=== PATIENT | male | born 1960 | race Caucasian/White ===

== ENCOUNTER 2017-02-08 21:24 | Emergency (ER) | payer SELFPAY ==
[2017-02-08 21:37] VITALS: BP 144/87; BMI 19.1
--- NOTE | 2017-02-08 22:12 | DR.GENAD ---
HPI - PCP Primary Care Physician: EUFEMIA - Complaint/Symptoms Chief Complaint Doctors Comments: Patient is a regular customer for cerumen impaction. Chief Complaint:: LT EAR HURTS AND IS STOPPED UP - Source History Provided: Patient - Mode of Arrival Mode of Arrival: Ambulatory - Timing Onset of Chief Complaint: 02/08/17 PMH - PMH Past Medical History: Yes Past Medical History: Kidney Stones Past Surgical History: Yes Surgical History: Abdominal Surgery, Tonsillectomy, Lithotripsy - Family History History of Family Medical Conditions: Yes Family Medical History: Diabetes Mellitus - Social History Do you use any recreational Drugs:: No Lives With: Alone Lives Where: Home - infectious screening In the last 2 months have you had wt loss of >10#?: NO Have you had fever, night sweats or hemotysis?: No Have you traveled outside the country in the last 6 months?: No Isolation: Standard ROS - Review of Systems Constitutional: No Symptoms Reported Eyes: No Symptoms Reported ENTM: Ear Pain Respiratoy: No Symptoms Reported Cardiovascular: No Symptoms Reported Gastrointestinal/Abdominal: No Symptoms Reported Genitourinary: No Symptoms Reported Neurological: No Symptoms Reported Musculoskeletal: No Symptoms Reported Integumentary: No Symptoms Reported Hematologic/Lymphatic: No Symptoms Reported Endocrine: No Symptoms Reported Psychiatric: No Symptoms Reported All Other Systems: Reviewed and Negative PE - Vital Signs Vitals: Temperature 98.4 F Pulse Rate 73 Respiratory Rate 18 Blood Pressure [Left Arm] 126/67 Blood Pressure [Right Arm] 119/74 Blood Pressure 144/87 O2 Sat by Pulse Oximetry 100 - General Limitations: No Limitations General Appearance: Alert, In No Apparent Distress - Head Head Exam: Normal Inspection, Atraumatic - Eyes Eye exam: Normal Appearance, PERRL, EOMI - ENT ENT Exam: Normal Exam External Ear Exam: Normal External Inspection TM/Canal Exam: Bilateral Cerumen Impaction Nose Exam: Normal Nose Exam Mouth Exam: Normal Inspection Throat Exam: Normal Inspection - Neck Neck Exam: Normal Inspection - Chest Chest Inspection: Normal Inspection - Respiratory Respiratory Exam: Normal Lung Sounds Bilat Respiratory Exam: Bilateral Clear to Auscultation - Cardiovascular Cardiovascular Exam: Regular Rate, Normal Rhythm - Abdominal Exam Abdominal Exam: Normal Inspection Abdominal Tenderness: negative: RUQ, RLQ, LUQ, LLQ, Epigastrium, Suprapubic, Diffuse, Mild, Moderate, Severe, Other - Extremities Extremities Exam: Normal Inspection, Full ROM - Back Back Exam: Normal Inspection, Full ROM - Neurologic Neurological Exam: Alert, Oriented X3, CN II-XII Intact - Psychiatric Psychiatric Exam: Normal Affect, Normal Mood - Skin Skin Exam: Warm, Dry Course - Treatment Treatment: Irrigation - Reevaluation 1st: Improved - Diagnosis Discharge Problem: Cerumen impaction Qualifiers: Laterality: bilateral Qualified Code(s): H61.23 - Impacted cerumen, bilateral - Discharge Plan Condition: Stable - Follow ups/Referrals Follow ups/Referrals: NFD,None [Primary Care Provider] - 3 days - Instructions
== END 2017-02-08 22:16 | disposition home or self-care (01) ==
LOC: ER 21:48
PROC: F09Z3XZ Cerumen Management Treatment using Cerumen Management Equipment (ICD-10-PCS; principal; 2017-02-08)
DX: H61.23 Impacted cerumen, bilateral (principal)
CPT/HCPCS: 69210; 99281; 99282

== ENCOUNTER 2017-06-14 23:45 | Emergency (ER) | payer SELFPAY ==
[2017-06-14 23:53] VITALS: BP 160/90; BMI 19.1
[2017-06-15] MEDS ORDERED: NS 1000 ML 1,000 ML ONE (00:01)
[2017-06-15] MEDS ORDERED: TORADOL 30 MG VIAL ONE (00:01)
[2017-06-15] MEDS ORDERED: TORADOL 30 MG VIAL IVP ONE (00:07)
[2017-06-15] MEDS ORDERED: NS 1000 ML 1,000 ML IV ONE (00:07)
--- NOTE | 2017-06-15 01:06 | DR.MBACK ---
HPI - Time Seen Time seen: 01:00 - PCP Primary Care Physician: NFD - Complaint Chief Complaint Doctors Comments: Patient admits to prior kidney stones.He reports that he had left flank pain when leaving work tonight. The pain is similar to previous kidney stone. Chief Complaint:: LT FLANK PAIN AND PAIN WHEN URINATING - Source History Provided: Patient - Mode of Arrival Mode of Arrival: Ambulatory - Timing Onset of Chief Complaint: 06/14/17 PMH - PMH Past Medical History: Yes Past Medical History: Kidney Stones Past Surgical History: Yes Surgical History: Abdominal Surgery, Tonsillectomy, Lithotripsy - Family History History of Family Medical Conditions: Yes Family Medical History: Diabetes Mellitus - Social History Does any household member use tobacco: No Alcohol Use: None Do you use any recreational Drugs:: No Lives With: Alone Lives Where: Home - infectious screening In the last 2 months have you had wt loss of >10#?: NO Have you had fever, night sweats or hemotysis?: No Have you traveled outside the country in the last 6 months?: No Isolation: Standard ROS - Review of Systems Eyes: No Symptoms Reported ENTM: No Symptoms Reported Respiratoy: No Symptoms Reported Cardiovascular: No Symptoms Reported Gastrointestinal/Abdominal: No Symptoms Reported Genitourinary: No Symptoms Reported Neurological: No Symptoms Reported Musculoskeletal: Back Pain, Left Integumentary: No Symptoms Reported Hematologic/Lymphatic: No Symptoms Reported Endocrine: No Symptoms Reported, Excessive Sweating Psychiatric: No Symptoms Reported All Other Systems: Reviewed and Negative PE - Vital Signs Vitals: Temperature 98.6 F Pulse Rate 78 Respiratory Rate 18 Blood Pressure [Left Arm] 126/67 Blood Pressure [Right Arm] 119/74 Blood Pressure 160/90 O2 Sat by Pulse Oximetry 99 - General Limitations: No Limitations General Appearance: Alert, In No Apparent Distress - Head Head Exam: Normal Inspection, Atraumatic - Eyes Eye exam: Normal Appearance, PERRL, EOMI - ENT ENT Exam: Normal Exam - Chest Chest Inspection: Normal Inspection - Respiratory Respiratory Exam: Normal Lung Sounds Bilat Respiratory Exam: Bilateral Clear to Auscultation - Cardiovascular Cardiovascular Exam: Regular Rate, Normal Rhythm - Abdominal Exam Abdominal Exam: Normal Inspection Abdominal Tenderness: negative: RUQ, RLQ, LUQ, LLQ, Epigastrium, Suprapubic, Diffuse, Mild, Moderate, Severe, Other - Genitourinary Exam: Male: Deferred - Extremities Extremities Exam: Normal Inspection, Full ROM - Back Back Exam: Normal Inspection, (L) CVA Tenderness - Neurological Neurological Exam: Alert, Oriented X3, CN II-XII Intact - Psychiatric Psychiatric Exam: Normal Affect, Normal Mood - Skin Skin Exam: Warm, Dry, Intact Course - Reevaluation 1st: Improved ROR - Labs Reviewed Laboratory: Specimen Type Clean catch urine 06/15/17 01:23 Urine Color Yellow (YELLOW) 06/15/17 01:23 Urine Appearance Slightly hazy (CLEAR) 06/15/17 01:23 Urine pH 5.0 (5.0 - 8.0) 06/15/17 01:23 Ur Specific [place] 1.030 (1.000-1.030) 06/15/17 01:23 Urine Protein 2+ (NEGATIVE) 06/15/17 01:23 Urine Glucose (UA) Negative (NEGATIVE) 06/15/17 01:23 Urine Ketones Negative (NEGATIVE) 06/15/17 01:23 Urine Occult Blood 5+ (NEGATIVE) 06/15/17 01:23 Urine Nitrite Negative (NEGATIVE) 06/15/17 01:23 Urine Bilirubin Negative (NEGATIVE) 06/15/17 01:23 Urine Urobilinogen Normal (NORMAL) 06/15/17 01:23 Ur Leukocyte Esterase 1+ (NEGATIVE) 06/15/17 01:23 Urine RBC 20-25 /HPF (NEGATIVE) 06/15/17 01:23 Urine WBC 3-5 /HPF (NEGATIVE) 06/15/17 01:23 Ur Squamous Epith Cells Rare /HPF (NEGATIVE) 06/15/17 01:23 Amorphous Sediment 2+ /HPF (NEGATIVE) 06/15/17 01:23 Urine Bacteria 1+ /HPF (NEGATIVE) 06/15/17 01:23 Ur Culture Indicated? Yes/culture set up 06/15/17 01:23 - XRAY XRAY Interpreted by: Radiologist (Ct Abd/pelv: Focal areas of bronchiectasis are seen in the base the right middle lobe and left lower lobe. Surgical clips are seen in the right upper quadrant. The liver,spleen,pancreas,adrenal glands kidneys and gallbladder are normal. There is a 2mm stone in the mid to distal left ureter. No hydroureter. There is no evidence of biliary ductal dilatation. The aorta and inferior vena cava are normal in caliber. The bowel loops are nonobstructed. Impression: There is a left ureteral stone measuring 2mm. No left hydronephrosis or hydroureter.) - Diagnosis Discharge Problem: Left ureteral stone - Discharge Plan Condition: Stable - Follow ups/Referrals Follow ups/Referrals: NFD,None [Primary Care Provider] - 3 days - Instructions
[2017-06-15 01:32] LABS: BILIRUBIN,URINE NEGATIVE (NEGATIVE); BLOOD/HEMOGLOBIN,URINE 5+ (NEGATIVE); GLUCOSE, URINE NEGATIVE (NEGATIVE); KETONES,URINE NEGATIVE (NEGATIVE); LEUKOCYTE ESTERASE ,URINE 1+ (NEGATIVE); NITRITES,URINE NEGATIVE (NEGATIVE); PROTEIN,URINE 2+ (NEGATIVE); UROBILINOGEN,URINE NORMAL (NORMAL)
[2017-06-15 01:40] LABS: AMORPHOUS SEDIMENT,UR 2+ /HPF (NEGATIVE); APPEARANCE,URINE SLIGHTLY HAZY (CLEAR); BACTERIA,URINE 1+ /HPF (NEGATIVE); COLOR,URINE YELLOW (YELLOW); RBC,URINE 20-25 /HPF (NEGATIVE); SQUAMOUS EPITHELIAL CELL,UR RARE /HPF (NEGATIVE)
[2017-06-15] MEDS ORDERED: MORPHINE SULFATE INJ 4 MG IVP ONE (01:46)
[2017-06-15] MEDS ORDERED: ZOFRAN INJ 4 MG VIAL ONE (01:46)
[2017-06-15] MEDS ORDERED: MORPHINE SULFATE INJ 4 MG ONE (01:47)
[2017-06-15] MEDS ORDERED: ZOFRAN INJ 4 MG VIAL IVP ONE (01:49)
--- NOTE | 2017-06-15 02:19 | CT ---
EXAM: CT ABDOMEN AND PELVIS WITHOUT CONTRAST INDICATION: Left flank pain COMPARISION: No priors available for comparison TECHNIQUE: Axial CT examination of the abdomen and pelvis was performed without intravenous contrast. Coronal a nd sagittal reconstructions were created using the axial data. FINDINGS: Focal areas of bronchiectasis are seen in the base the right middle lobe and left lower lobe. Surgic al clips are seen in the right upper quadrant. The liver, spleen, pancreas, adrenal glands, kidneys, and gallbladder are normal. There is a 2 mm stone in the mid to distal left ureter . No hydroureter . There is no evidence of biliary ductal dilatation. The aorta and inferior vena cava are normal in caliber. The bowel loops are nonobstructed. No abnormal mass, lymphadenopathy, or fluid collection. Urinary bladder is normal. The regional skeleton is intact. IMPRESSION: There is a left ureteral stone measuring 2 mm. No left hydronephrosis or hydroureter. Reported By:
== END 2017-06-15 03:03 | disposition home or self-care (01) ==
LOC: ER 23:45
DX: N20.1 Calculus of ureter (principal); R10.84 Generalized abdominal pain
CPT/HCPCS: 74176; 81001; 87086; 96365; 96374; 96375; 99283; A4222; J1885; J2270; J2405

== ENCOUNTER → 2017-12-26 | Outpatient (CLI) | payer SELFPAY ==
[2017-12-26 12:18] LABS: BASOPHILS % (AUTO) 0.6 % (0.2-1.0); EOSINOPHILS # (AUTO) 0.2 x10^3/uL (0.0-0.2); EOSINOPHILS % (AUTO) 3.4 % (0.9-2.9); HEMATOCRIT 38.3 % (42.0-54.0); HEMOGLOBIN 13.1 g/dL (13.5-18.0); LYMPHOCYTES # (AUTO) 1.1 X10^3/uL (1.3-2.9); LYMPHOCYTES % (AUTO) 18.1 % (21.0-51.0); MEAN CORPUSCULAR HGB CONC 34.2 g/dL (33.0-35.0); MEAN CORPUSCULAR VOLUME 90.8 fL (80.0-100.0); MEAN PLATELET VOLUME 8.2 fL (7.4-11.0); MONOCYTES # (AUTO) 0.5 x10^3/uL (0.3-0.8); MONOCYTES % (AUTO) 7.7 % (0.0-13.0); NEUTROPHILS # (AUTO) 4.3 x10^3/uL (2.2-4.8); NEUTROPHILS % (AUTO) 70.2 % (42.0-75.0); PLATELET COUNT 205 X10^3/uL (150.0-450.0); RED BLOOD COUNT 4.22 X10^6/uL (4.7-6.0); RED CELL DISTRIBUTION WIDTH 12.8 % (11.6-16.5); WHITE BLOOD COUNT 6.1 X10^3/uL (3.6-10.0)
--- NOTE | 2017-12-26 12:23 | RAD ---
HISTORY: Bronchitis Study: Two views the chest Comparison: November 06, 2016 Findings: The patient is slightly rotated. The cardiac silhouette is unremarkable. Interstitial changes are aga in seen within both lungs. No evidence of focal consolidation is identified. IMPRESSION: No evidence of acute cardiopulmonary disease is appreciated. Reported By:
== END ==
LOC: LAB 12:01
PROVIDERS: ATTEND Nurse Practitioner Family
DX: J20.9 Acute bronchitis, unspecified (principal)
CPT/HCPCS: 36415; 71046; 85025

== ENCOUNTER 2018-10-10 11:39 | Inpatient (IN) ==
[2018-10-10] MEDS: DUONEB 0.5 MG/3 MG NEB SCH ×3 (12:15→20:18)
[2018-10-10] MEDS ORDERED: SALINE 3% 15 ML NEB TX NEB ONE (12:15)
[2018-10-10] MEDS ORDERED: TUSSIONEX PENNKINETIC SUSP PO PRN (12:53)
--- NOTE | 2018-10-10 13:15 | DR.H&P ---
H&P - History & Physical for Day of: H&P Date: 10/10/18 - Chief Complaint Chief Complaint: fever, ccc, wheezing - History of Present Illness History of Present Illness: 58 WM DIRECT ADMIT FROM DR VAZQUEZ OFFICE WITH CO FEVER, SOB, CCC, SORE THROAT AND WHEEZING. PT WAS SEEN IN OFFICE WITH ROCEPHIN 1GM, DECADRON 10MG IM, PO LEVAQUIN. PT HAD FLU AND STREP SCREEN NEGATIVE IN THE OFFICE. PT CONTINUED WITH CO WHEEZING, FEELS WEAK, CONTINUED WITH FEVER DURING THE NIGHT. PT HAS PMH OF PUD, GERD, HYPOTHYROIDISM. PT ADMITTED FOR PNEUMONIA PROTCOL. - Past Medical History Past Medical History: Hypothyroidism, Kidney Stones Additional Medical History: Hx GI Ulcer - Past Surgical History Surgical History: Abdominal Surgery, Tonsillectomy, Lithotripsy - Family History Family Medical History: Diabetes Mellitus - Social History Does patient currently use any type of tobacco product: No Have you used tobacco products in the last 12 months: No Type of Tobacco Use: None Does any household member use tobacco: No Alcohol Use: None Drug Use: None - Medications Home Medications: No Known Drug Allergies Allergy (Verified 06/14/17 23:46) - Review of Systems Constitutional: Fever, Chills, Weakness Eyes: No Symptoms Reported ENT: No Symptoms Reported Respiratory: Cough, Shortness of Breath, SOB with Excertion, Wheezing Cardiovascular: No Symptoms Reported Gastrointestinal: Nausea Genitourinary: No Symptoms Reported Musculoskeletal: No Symptoms Reported Skin: No Symptoms Reported Neurological: Weakness - Physical Exam Vital Signs: Temperature 97.8 F Pulse Rate [Left Brachial] 86 Respiratory Rate 20 Blood Pressure [Left Arm] 132/81 Blood Pressure [Right Arm] 119/74 Blood Pressure 160/88 O2 Sat by Pulse Oximetry 98 Oriented: Normal Eyes: Normal Ear: Normal Nose: Injected Throat: Exudate Respiratory: Wheezes Throughout, RLL Diminished, LLL Diminished Cardiovascular: Normal : Normal Auscultation: Bowel Sounds: Normal Palpation: Normal Tenderness: Normal Skin: Decreased Turgur Musculoskeletal: Normal Psychiatric: Normal Mood Description: Calm Speech Pattern: Clear, Appropriate - Assessment/Plan (1) Bronchopneumonia Status: Acute Plan: ADMIT, PNEUMONIA PROTOCOL. IV ATBX, LEVAQUIN AND ZOSYN. JET NEBS, SUPPLEMENTAL O2. PPI THERAPY, BLOOD AND SPUTUM CULTURED COLLECTED ON ADMISSION. ADMISSION CXR (2) Fever Status: Acute (3) Hypothyroidism Status: Chronic - Allergies Allergies/Adverse Reactions: Allergies Allergy/AdvReac Type Severity Reaction Status Date / Time No Known Drug Allergies Allergy Verified 06/14/17 23:46
[2018-10-10] MEDS ORDERED: NS 1/2 1000 ML IV 1,000 ML IV ONE (13:20)
[2018-10-10 13:29] VITALS: BMI 19.1
[2018-10-10] MEDS: NS 1/2 1000 ML IV 1,000 ML IV SCH (13:33)
[2018-10-10 13:34] LABS: BASOPHILS # (AUTO) 0.1 X10^3/uL (0.0-0.1); BASOPHILS % (AUTO) 0.4 % (0.2-1.0); EOSINOPHILS % (AUTO) 0.1 % (0.9-2.9); HEMATOCRIT 42.2 % (42.0-54.0); HEMOGLOBIN 14.2 g/dL (13.5-18.0); LYMPHOCYTES # (AUTO) 0.8 X10^3/uL (1.3-2.9); MEAN CORPUSCULAR HEMOGLOBIN 30.7 pg (27.0-34.0); MEAN CORPUSCULAR HGB CONC 33.5 g/dL (33.0-35.0); MEAN CORPUSCULAR VOLUME 91.5 fL (80.0-100.0); MEAN PLATELET VOLUME 9.6 fL (7.4-11.0); MONOCYTES # (AUTO) 1.1 x10^3/uL (0.3-0.8); MONOCYTES % (AUTO) 7.1 % (0.0-13.0); NEUTROPHILS # (AUTO) 13.6 x10^3/uL (2.2-4.8); NEUTROPHILS % (AUTO) 87.4 % (42.0-75.0); PLATELET COUNT 229 X10^3/uL (150.0-450.0); RED BLOOD COUNT 4.62 X10^6/uL (4.7-6.0); RED CELL DISTRIBUTION WIDTH 13.5 % (11.6-16.5); WHITE BLOOD COUNT 15.6 X10^3/uL (3.6-10.0)
[2018-10-10] MEDS: ROBITUSSIN DM PO SCH ×3 (13:34→21:00)
[2018-10-10] MEDS: LEVAQUIN PREMIX IV 750 MG 750 MG/150 ML BAG IV SCH (13:34)
[2018-10-10] MEDS: PROTONIX INJ 40 MG VIAL IVP SCH (13:35)
[2018-10-10 13:51] LABS: ALANINE AMINOTRANSFERASE 23 Units/L (12-78); ALBUMIN 3.9 g/dL (3.4-5.0); ALKALINE PHOSPHATASE 68 Units/L (46-116); ASPARTATE AMINO TRANSFERASE 23 Units/L (15-37); BLOOD UREA NITROGEN 22 mg/dL (7-18); CALCIUM 9.2 mg/dL (8.5-10.1); CHLORIDE 102 mmol/L (98-107); COR NA(FOR HYPERGLY) 140 mmol/L (136-145); SODIUM 139 mmol/L (136-145); TOTAL PROTEIN 9.1 g/dL (6.4-8.2); TSH (3RD GENERATION) 3.054 uIU/mL (0.358-3.74); eGFR NON BLACK RACES > 60 (>60)
[2018-10-10] MEDS: ZOSYN VIAL 4.5 GRAMS 4.5 G in NS 100 ML IV + SPIKE MINIBAG* 100 ML IV SCH ×2 (15:11→21:00)
[2018-10-10] MEDS: PULMICORT NEB TX 0.5 MG NEB SCH ×2 (16:02→20:18)
--- NOTE | 2018-10-10 17:17 | RAD ---
Exam: Chest two views History: 58-year-old male with cough Comparison: Previous chest radiograph from 05/06/2018. Findings: Heart size and pulmonary vasculature are normal. Lungs are clear with no infiltrate or significant effusion on either side. Bony thorax is unremarkable as well. Impression: No acute cardiopulmonary abnormality is seen on this exam Reported By:
[2018-10-11] MEDS: DUONEB 0.5 MG/3 MG NEB SCH ×6 (00:52→20:42)
[2018-10-11] MEDS: NS 1/2 1000 ML IV 1,000 ML IV SCH ×3 (03:51→21:03)
[2018-10-11] MEDS: ZOSYN VIAL 4.5 GRAMS 4.5 G in NS 100 ML IV + SPIKE MINIBAG* 100 ML IV SCH ×3 (05:05→21:02)
[2018-10-11 05:14] LABS: BASOPHILS % (AUTO) 0.3 % (0.2-1.0); EOSINOPHILS % (AUTO) 0.4 % (0.9-2.9); HEMATOCRIT 34.5 % (42.0-54.0); LYMPHOCYTES % (AUTO) 8.4 % (21.0-51.0); MEAN CORPUSCULAR HEMOGLOBIN 30.4 pg (27.0-34.0); MEAN CORPUSCULAR HGB CONC 33.2 g/dL (33.0-35.0); MEAN CORPUSCULAR VOLUME 91.3 fL (80.0-100.0); MEAN PLATELET VOLUME 9.1 fL (7.4-11.0); MONOCYTES # (AUTO) 0.9 x10^3/uL (0.3-0.8); MONOCYTES % (AUTO) 7.6 % (0.0-13.0); NEUTROPHILS # (AUTO) 9.5 x10^3/uL (2.2-4.8); NEUTROPHILS % (AUTO) 83.3 % (42.0-75.0); PLATELET COUNT 183 X10^3/uL (150.0-450.0); RED BLOOD COUNT 3.78 X10^6/uL (4.7-6.0); RED CELL DISTRIBUTION WIDTH 13.3 % (11.6-16.5); WHITE BLOOD COUNT 11.4 X10^3/uL (3.6-10.0)
[2018-10-11 05:21] LABS: ALANINE AMINOTRANSFERASE 20 Units/L (12-78); ALBUMIN 2.9 g/dL (3.4-5.0); ALKALINE PHOSPHATASE 51 Units/L (46-116); ASPARTATE AMINO TRANSFERASE 14 Units/L (15-37); BLOOD UREA NITROGEN 19 mg/dL (7-18); CALCIUM 7.7 mg/dL (8.5-10.1); CARBON DIOXIDE 26.5 mmol/L (21-32); CHLORIDE 105 mmol/L (98-107); COR CA(FOR HYPOALB) 8.6 mg/dL (8.5-10.1); COR NA(FOR HYPERGLY) 141 mmol/L (136-145); CREATININE 1.32 mg/dL (0.70-1.30); SODIUM 141 mmol/L (136-145); TOTAL PROTEIN 6.8 g/dL (6.4-8.2); eGFR NON BLACK RACES 60 (>60)
[2018-10-11 05:22] LABS: HEMOGLOBIN 11.5 g/dL (13.5-18.0)
[2018-10-11] MEDS: PULMICORT NEB TX 0.5 MG NEB SCH ×2 (08:23→20:42)
[2018-10-11] MEDS: ROBITUSSIN DM PO SCH ×4 (08:48→21:02)
[2018-10-11] MEDS: PROTONIX INJ 40 MG VIAL IVP SCH (08:48)
[2018-10-11] MEDS: LEVAQUIN PREMIX IV 750 MG 750 MG/150 ML BAG IV SCH (08:49)
[2018-10-11] MEDS ORDERED: NS 1/2 1000 ML IV 1,000 ML IV ONE ×2 (11:28→20:35)
[2018-10-11 23:40] LABS: BILIRUBIN,URINE NEGATIVE (NEGATIVE); BLOOD/HEMOGLOBIN,URINE NEGATIVE (NEGATIVE); GLUCOSE, URINE NEGATIVE (NEGATIVE); KETONES,URINE NEGATIVE (NEGATIVE); LEUKOCYTE ESTERASE ,URINE NEGATIVE (NEGATIVE); NITRITES,URINE NEGATIVE (NEGATIVE); PROTEIN,URINE 2+ (NEGATIVE); UROBILINOGEN,URINE NORMAL (NORMAL)
[2018-10-11 23:52] LABS: APPEARANCE,URINE CLEAR (CLEAR); BACTERIA,URINE NEGATIVE /HPF (NEGATIVE); COLOR,URINE YELLOW (YELLOW); RBC,URINE NONE SEEN /HPF (NONE SEEN); SQUAMOUS EPITHELIAL CELL,UR RARE /HPF (NEGATIVE)
[2018-10-12] MEDS: DUONEB 0.5 MG/3 MG NEB SCH ×3 (01:01→08:53)
[2018-10-12 05:24] LABS: BASOPHILS % (AUTO) 0.4 % (0.2-1.0); EOSINOPHILS # (AUTO) 0.2 x10^3/uL (0.0-0.2); EOSINOPHILS % (AUTO) 2.3 % (0.9-2.9); HEMOGLOBIN 11.4 g/dL (13.5-18.0); LYMPHOCYTES # (AUTO) 1.5 X10^3/uL (1.3-2.9); LYMPHOCYTES % (AUTO) 16.9 % (21.0-51.0); MEAN CORPUSCULAR HEMOGLOBIN 30.4 pg (27.0-34.0); MEAN CORPUSCULAR HGB CONC 33.4 g/dL (33.0-35.0); MEAN CORPUSCULAR VOLUME 90.8 fL (80.0-100.0); MEAN PLATELET VOLUME 8.7 fL (7.4-11.0); MONOCYTES # (AUTO) 0.9 x10^3/uL (0.3-0.8); NEUTROPHILS # (AUTO) 6.3 x10^3/uL (2.2-4.8); NEUTROPHILS % (AUTO) 70.4 % (42.0-75.0); PLATELET COUNT 192 X10^3/uL (150.0-450.0); RED BLOOD COUNT 3.75 X10^6/uL (4.7-6.0); RED CELL DISTRIBUTION WIDTH 13.3 % (11.6-16.5); WHITE BLOOD COUNT 8.9 X10^3/uL (3.6-10.0)
[2018-10-12 05:28] LABS: ALANINE AMINOTRANSFERASE 21 Units/L (12-78); ALBUMIN 2.7 g/dL (3.4-5.0); ALKALINE PHOSPHATASE 49 Units/L (46-116); ASPARTATE AMINO TRANSFERASE 15 Units/L (15-37); BLOOD UREA NITROGEN 12 mg/dL (7-18); CALCIUM 7.5 mg/dL (8.5-10.1); CHLORIDE 106 mmol/L (98-107); COR CA(FOR HYPOALB) 8.5 mg/dL (8.5-10.1); CREATININE 1.12 mg/dL (0.70-1.30); SODIUM 140 mmol/L (136-145); TOTAL PROTEIN 6.4 g/dL (6.4-8.2); eGFR NON BLACK RACES > 60 (>60)
[2018-10-12] MEDS: ZOSYN VIAL 4.5 GRAMS 4.5 G in NS 100 ML IV + SPIKE MINIBAG* 100 ML IV SCH (05:49)
[2018-10-12] MEDS: NS 1/2 1000 ML IV 1,000 ML IV SCH ×2 (07:39→07:40)
[2018-10-12 08:03] VITALS: BP 129/78
[2018-10-12] MEDS: ROBITUSSIN DM PO SCH (08:53)
[2018-10-12] MEDS: PULMICORT NEB TX 0.5 MG NEB SCH (08:53)
[2018-10-12] MEDS: LEVAQUIN PREMIX IV 750 MG 750 MG/150 ML BAG IV SCH (08:54)
[2018-10-12] MEDS: PROTONIX INJ 40 MG VIAL IVP SCH (08:54)
== END 2018-10-12 11:10 | disposition home or self-care (01) | DRG 195 ==
LOC: MED/SURG 12:02
PROVIDERS: ADMIT Internal Medicine; ATTEND Internal Medicine
DX: R50.9 Fever, unspecified; R06.02 Shortness of breath; K21.9 Gastro-esophageal reflux disease without esophagitis; E03.8 Other specified hypothyroidism; J18.0 Bronchopneumonia, unspecified organism
CPT/HCPCS: 36415; 71020; 71046; 80053; 81001; 84439; 84443; 85025; 87040; 94640; 94760; A4222; C9113; J1956; J2543; J7050; J7620; J7626

== ENCOUNTER 2019-08-30 11:08 | Inpatient (IN) ==
--- NOTE | 2019-08-30 12:04 | DR.H&P ---
H&P - History & Physical for Day of: H&P Date: 08/30/19 - Chief Complaint Chief Complaint: FEVER, COUGH, CHEST CONGESTION, SOB, DEHYDRATION - History of Present Illness History of Present Illness: 59 WM DIRECT ADMIT FROM DR VAZQUEZ OFFICE WITH CO FEVER, BRONCHITIS, DEHYDRATION. PT WAS SEEN ON OFFICE ON , GIVEN ROCEPHIN 1GM IM, ZITHROMAX PO WITH NEGATIVE FLU SWAB IN OFFICE. PT HAD ER VISIT ON 08/29 WITH DX ACUTE BRONCHITIS. PT REPORTS FATIGUE, NO APPETITE, SOB. PT HAD TEMP 100.5. PT ADMITTED FOR TREATMENT OF ACUTE ILLNESS, RESP THERAPY, IV ATBX. - Past Medical History Past Medical History: GERD, Hypothyroidism, Kidney Stones Additional Medical History: Hx GI Ulcer - Past Surgical History Surgical History: Abdominal Surgery, Lithotripsy, Tonsillectomy - Family History Family Medical History: Diabetes Mellitus - Social History Does patient currently use any type of tobacco product: No Have you used tobacco products in the last 12 months: No Type of Tobacco Use: None Does any household member use tobacco: No Alcohol Use: None Drug Use: None Risks, benefits, and alternatives of opioids discussed: No - Medications Home Medications: No Known Drug Allergies Allergy (Verified 01/24/19 13:29) - Review of Systems Constitutional: Fever, Chills, Sweats, Weakness, Malaise Eyes: No Symptoms Reported ENT: Nose Discharge, Nose Congestion, Throat Pain, Throat Swelling Respiratory: Cough, Shortness of Breath, Wheezing Cardiovascular: No Symptoms Reported Gastrointestinal: Nausea Genitourinary: No Symptoms Reported Musculoskeletal: No Symptoms Reported Skin: No Symptoms Reported Neurological: No Symptoms Reported - Physical Exam Vital Signs: Blood Pressure [Right Arm] 121/61 Oriented: Normal Eyes: Normal Ear: Normal Nose: Normal Throat: Dry Respiratory: RLL Diminished, LLL Diminished Cardiovascular: Normal : Normal Auscultation: Bowel Sounds: Normal Palpation: Normal Tenderness: Normal Skin: Diaphoresis (MILD) Musculoskeletal: Back:Lumbar Psychiatric: Anxiety Affect: Anxious Speech Pattern: Clear, Appropriate - Assessment/Plan (1) Bronchitis Status: Acute Plan: ADMIT, PNEUMONIA PROTOCOL. IV HYDRATION, IV ATBX THERAPY. CXR ON ADMISSION, BLOOD AND SPUTUM CULTURE. RESP THERAPY, PRN SUPPLEMENTAL O2. FEVER CONTROL (2) Dehydration Status: Acute Plan: GENTLE IV HYDRATION. REPEAT AM CMP (3) Bronchopneumonia Status: Acute (4) Fever Status: Acute (5) Weakness Status: Acute (6) Hypothyroidism Status: Chronic - Allergies Allergies/Adverse Reactions: Allergies Allergy/AdvReac Type Severity Reaction Status Date / Time No Known Drug Allergies Allergy Verified 01/24/19 13:29
[2019-08-30] MEDS ORDERED: SALINE 3% 15 ML NEB TX NEB ONE (12:25)
[2019-08-30 12:38] LABS: BASOPHILS % (AUTO) 0.3 % (0.2-1.0); EOSINOPHILS % (AUTO) 0.3 % (0.9-2.9); HEMOGLOBIN 13.4 g/dL (13.5-18.0); LYMPHOCYTES # (AUTO) 0.7 X10^3/uL (1.3-2.9); LYMPHOCYTES % (AUTO) 9.9 % (21.0-51.0); MEAN CORPUSCULAR HEMOGLOBIN 30.5 pg (27.0-34.0); MEAN CORPUSCULAR HGB CONC 33.5 g/dL (33.0-35.0); MEAN CORPUSCULAR VOLUME 91.1 fL (80.0-100.0); MEAN PLATELET VOLUME 8.2 fL (7.4-11.0); MONOCYTES # (AUTO) 1.1 x10^3/uL (0.3-0.8); MONOCYTES % (AUTO) 14.3 % (0.0-13.0); NEUTROPHILS # (AUTO) 5.5 x10^3/uL (2.2-4.8); NEUTROPHILS % (AUTO) 75.2 % (42.0-75.0); PLATELET COUNT 191 X10^3/uL (150.0-450.0); RED BLOOD COUNT 4.39 X10^6/uL (4.7-6.0); RED CELL DISTRIBUTION WIDTH 13.3 % (11.6-16.5); WHITE BLOOD COUNT 7.4 X10^3/uL (3.6-10.0)
[2019-08-30 12:47] LABS: ALANINE AMINOTRANSFERASE 17 Units/L (12-78); ALBUMIN 3.8 g/dL (3.4-5.0); ALKALINE PHOSPHATASE 56 Units/L (46-116); ASPARTATE AMINO TRANSFERASE 32 Units/L (15-37); BLOOD UREA NITROGEN 21 mg/dL (7-18); CARBON DIOXIDE 26.7 mmol/L (21-32); CHLORIDE 103 mmol/L (98-107); CREATININE 1.49 mg/dL (0.70-1.30); SODIUM 140 mmol/L (136-145); TOTAL PROTEIN 8.4 g/dL (6.4-8.2); eGFR NON BLACK RACES 52 (>60)
[2019-08-30] MEDS ORDERED: NS 1/2 1000 ML IV 1,000 ML IV ONE ×2 (12:56→22:09)
[2019-08-30] MEDS: NS 1/2 1000 ML IV 1,000 ML IV SCH ×2 (13:02→22:15)
[2019-08-30] MEDS: PROTONIX INJ 40 MG VIAL IVP SCH (13:03)
[2019-08-30] MEDS: ROBITUSSIN DM PO SCH ×3 (13:03→20:17)
[2019-08-30] MEDS: LEVAQUIN PREMIX IV 500 MG 500 MG/100 ML BAG IV SCH (13:31)
--- NOTE | 2019-08-30 14:44 | RAD ---
HISTORY: Pneumonia. Prior history of stomach ulcers. Study: Two-view chest Comparison: 08/28/2019. Findings: Trachea is midline. Heart size is normal. There is aortic uncoiling. There is hyperinflation of the lungs with increased interstitial markings bilaterally, favoring COPD. Foci bronchitis are present in the lung bases. No dense consolidation, pleural fluid or CHF is seen. There is no evidence pneumothorax. A very gentle thoracolumbar scoliosis is present. IMPRESSION: COPD with mild bibasilar bronchitis. No dense consolidation is seen. Reported By:
[2019-08-30] MEDS: ZOSYN VIAL 4.5 GRAMS 4.5 G in NS 100 ML IV + SPIKE MINIBAG* 100 ML IV SCH ×2 (14:52→21:16)
[2019-08-30 15:56] VITALS: BMI 19.8
[2019-08-30] MEDS: DUONEB 0.5 MG/3 MG NEB SCH ×2 (16:37→20:40)
[2019-08-30 17:38] LABS: BILIRUBIN,URINE NEGATIVE (NEGATIVE); BLOOD/HEMOGLOBIN,URINE 3+ (NEGATIVE); GLUCOSE, URINE NEGATIVE (NEGATIVE); KETONES,URINE 1+ (NEGATIVE); LEUKOCYTE ESTERASE ,URINE NEGATIVE (NEGATIVE); NITRITES,URINE NEGATIVE (NEGATIVE); PROTEIN,URINE 2+ (NEGATIVE); UROBILINOGEN,URINE NORMAL (NORMAL)
[2019-08-30 17:54] LABS: APPEARANCE,URINE HAZY (CLEAR); COLOR,URINE YELLOW (YELLOW)
[2019-08-30 17:55] LABS: AMORPHOUS SEDIMENT,UR 2+ /HPF (NEGATIVE); BACTERIA,URINE TRACE /HPF (NEGATIVE); MUCUS,URINE FEW /HPF (NEGATIVE); RBC,URINE 0-2 /HPF (0-3); SQUAMOUS EPITHELIAL CELL,UR FEW /HPF (NEGATIVE)
[2019-08-31] MEDS: NS 1/2 1000 ML IV 1,000 ML IV SCH ×4 (01:32→21:48)
[2019-08-31] MEDS: TUSSIONEX PENNKINETIC SUSP PO PRN ×2 (01:32→10:10)
[2019-08-31 05:41] LABS: BASOPHILS % (AUTO) 0.3 % (0.2-1.0); EOSINOPHILS # (AUTO) 0.1 x10^3/uL (0.0-0.2); EOSINOPHILS % (AUTO) 1.6 % (0.9-2.9); HEMATOCRIT 37.4 % (42.0-54.0); HEMOGLOBIN 12.6 g/dL (13.5-18.0); LYMPHOCYTES % (AUTO) 18.2 % (21.0-51.0); MEAN CORPUSCULAR HEMOGLOBIN 30.5 pg (27.0-34.0); MEAN CORPUSCULAR HGB CONC 33.8 g/dL (33.0-35.0); MEAN CORPUSCULAR VOLUME 90.2 fL (80.0-100.0); MEAN PLATELET VOLUME 8.6 fL (7.4-11.0); MONOCYTES # (AUTO) 0.9 x10^3/uL (0.3-0.8); MONOCYTES % (AUTO) 16.7 % (0.0-13.0); NEUTROPHILS # (AUTO) 3.4 x10^3/uL (2.2-4.8); NEUTROPHILS % (AUTO) 63.2 % (42.0-75.0); PLATELET COUNT 142 X10^3/uL (150.0-450.0); RED BLOOD COUNT 4.15 X10^6/uL (4.7-6.0); WHITE BLOOD COUNT 5.3 X10^3/uL (3.6-10.0)
[2019-08-31 06:02] LABS: ALANINE AMINOTRANSFERASE 15 Units/L (12-78); ALBUMIN 3.1 g/dL (3.4-5.0); ALKALINE PHOSPHATASE 49 Units/L (46-116); ASPARTATE AMINO TRANSFERASE 31 Units/L (15-37); BLOOD UREA NITROGEN 17 mg/dL (7-18); CALCIUM 8.2 mg/dL (8.5-10.1); CARBON DIOXIDE 23.6 mmol/L (21-32); CHLORIDE 103 mmol/L (98-107); COR CA(FOR HYPOALB) 8.9 mg/dL (8.5-10.1); CREATININE 1.19 mg/dL (0.70-1.30); SODIUM 136 mmol/L (136-145); TOTAL PROTEIN 7.3 g/dL (6.4-8.2); eGFR NON BLACK RACES > 60 (>60)
[2019-08-31] MEDS: ZOSYN VIAL 4.5 GRAMS 4.5 G in NS 100 ML IV + SPIKE MINIBAG* 100 ML IV SCH ×3 (06:27→21:48)
[2019-08-31] MEDS ORDERED: NS 1/2 1000 ML IV 1,000 ML IV ONE ×2 (06:46→21:27)
[2019-08-31] MEDS: DUONEB 0.5 MG/3 MG NEB SCH ×4 (08:36→20:50)
[2019-08-31] MEDS: ROBITUSSIN DM PO SCH ×4 (10:10→21:48)
[2019-08-31] MEDS: LEVAQUIN PREMIX IV 500 MG 500 MG/100 ML BAG IV SCH (10:11)
[2019-08-31] MEDS: PROTONIX INJ 40 MG VIAL IVP SCH (10:11)
[2019-08-31] MEDS: SOLU-Medrol 125 MG VIAL IVP SCH ×3 (10:23→21:48)
[2019-08-31] MEDS: PULMICORT NEB TX 0.5 MG NEB SCH ×2 (17:40→20:50)
[2019-09-01 05:31] LABS: BASOPHILS % (AUTO) 0.1 % (0.2-1.0); HEMATOCRIT 33.8 % (42.0-54.0); HEMOGLOBIN 11.5 g/dL (13.5-18.0); LYMPHOCYTES # (AUTO) 0.4 X10^3/uL (1.3-2.9); LYMPHOCYTES % (AUTO) 6.1 % (21.0-51.0); MEAN CORPUSCULAR HEMOGLOBIN 30.6 pg (27.0-34.0); MEAN PLATELET VOLUME 8.8 fL (7.4-11.0); MONOCYTES # (AUTO) 0.2 x10^3/uL (0.3-0.8); MONOCYTES % (AUTO) 3.5 % (0.0-13.0); NEUTROPHILS # (AUTO) 5.5 x10^3/uL (2.2-4.8); NEUTROPHILS % (AUTO) 90.3 % (42.0-75.0); PLATELET COUNT 153 X10^3/uL (150.0-450.0); RED BLOOD COUNT 3.76 X10^6/uL (4.7-6.0); RED CELL DISTRIBUTION WIDTH 13.1 % (11.6-16.5)
[2019-09-01 05:40] LABS: ALANINE AMINOTRANSFERASE 20 Units/L (12-78); ALBUMIN 2.8 g/dL (3.4-5.0); ALKALINE PHOSPHATASE 55 Units/L (46-116); ASPARTATE AMINO TRANSFERASE 20 Units/L (15-37); BLOOD UREA NITROGEN 11 mg/dL (7-18); CALCIUM 8.3 mg/dL (8.5-10.1); CARBON DIOXIDE 23.3 mmol/L (21-32); CHLORIDE 103 mmol/L (98-107); COR CA(FOR HYPOALB) 9.3 mg/dL (8.5-10.1); COR NA(FOR HYPERGLY) 140 mmol/L (136-145); CREATININE 1.05 mg/dL (0.70-1.30); SODIUM 138 mmol/L (136-145); TOTAL PROTEIN 6.7 g/dL (6.4-8.2); eGFR NON BLACK RACES > 60 (>60)
[2019-09-01 05:57] LABS: BAND NEUTROPHILS % 10 % (0-10); PLATELET MORPHOLOGY COMMENT NORMAL (NORMAL)
--- NOTE | 2019-09-01 06:04 | RAD ---
Examination: Chest, PA and lateral views History: Bronchitis Comparison reference 08/30/2019 Findings: The heart is normal in size and configuration. The lungs are clear of active disease. There is no evidence for acute infiltrate, consolidation, adenopathy or pleural fluid. Impression: No active chest disease demonstrated. Reported By:
[2019-09-01] MEDS: ZOSYN VIAL 4.5 GRAMS 4.5 G in NS 100 ML IV + SPIKE MINIBAG* 100 ML IV SCH ×3 (07:00→21:09)
[2019-09-01] MEDS: PULMICORT NEB TX 0.5 MG NEB SCH ×2 (08:30→21:15)
[2019-09-01] MEDS: DUONEB 0.5 MG/3 MG NEB SCH ×5 (08:30→21:15)
[2019-09-01] MEDS: TUSSIONEX PENNKINETIC SUSP PO PRN ×2 (08:54→20:35)
[2019-09-01] MEDS: LEVAQUIN PREMIX IV 500 MG 500 MG/100 ML BAG IV SCH (09:06)
[2019-09-01] MEDS: ROBITUSSIN DM PO SCH ×4 (09:07→20:34)
[2019-09-01] MEDS: PROTONIX INJ 40 MG VIAL IVP SCH (09:07)
[2019-09-01] MEDS: NS 1/2 1000 ML IV 1,000 ML IV SCH ×2 (09:17→20:33)
--- NOTE | 2019-09-01 12:27 | PCM.PROG ---
Progress Note Progress Note for Day of Date of Exam: 09/01/19 Subjective Subjective: Pt is a 59 yo m admitted for bronchopneumonia and dehydration. He states feeling better today. He believes his breathing has improved from yesterday. No acute concerns overnight. Past Medical Family Social History Past Med/Fam/Surg Hx: No changes since H&P Allergies: Allergies No Known Drug Allergies Allergy (Verified 01/24/19 13:29) Review of Systems ROS: No change since H&P Vital Signs and I&O's Vital Signs: Temperature 98.0 F Pulse Rate [Right Brachial] 60 Pulse Rate 79 Respiratory Rate 18 Blood Pressure [Right Arm] 158/79 Blood Pressure 143/77 O2 Sat by Pulse Oximetry 96 Intake and Output: Intake & Output 08/29/19 08/30/19 08/31/19 09/01/19 23:59 23:59 23:59 23:59 Intake Total 1710 / 1710 2890 / 2890 250 / 250 Output Total 525 / 525 Balance 1710 / 1710 2365 / 2365 250 / 250 Physical Exam Oriented: Normal Eyes: Normal Ear: Normal Nose: Normal Throat: Dry Respiratory: Rales (mild b/l) Cardiovascular: Normal : Normal Auscultation: Bowel Sounds: Normal Tenderness: Normal Skin: Normal Musculoskeletal: Back:Lumbar Psychiatric: Anxiety Affect: Anxious Speech Pattern: Clear and Appropriate Laboratory and Diagnostics Result Diagrams: 09/01/19 05:00 09/01/19 05:00 Labs: 08/31/19 12:56 Sputum - Expectorated Sputum Sputum Culture - Preliminary 08/31/19 12:56 Sputum - Expectorated Sputum - Final 08/30/19 16:30 Sputum - Expectorated Sputum Sputum Culture - Final 08/30/19 16:30 Sputum - Expectorated Sputum - Final 08/30/19 12:25 Blood Blood Culture - Preliminary 08/30/19 12:15 Blood Blood Culture - Preliminary Laboratory WBC 6.0 X10^3/uL (3.6-10.0) 09/01/19 05:00 RBC 3.76 X10^6/uL (4.7-6.0) L 09/01/19 05:00 Hgb 11.5 g/dL (13.5-18.0) L 09/01/19 05:00 Hct 33.8 % (42.0-54.0) L 09/01/19 05:00 MCV 90.0 fL (80.0-100.0) 09/01/19 05:00 MCH 30.6 pg (27.0-34.0) 09/01/19 05:00 MCHC 34.0 g/dL (33.0-35.0) 09/01/19 05:00 RDW 13.1 % (11.6-16.5) 09/01/19 05:00 Plt Count 153 X10^3/uL (150.0-450.0) 09/01/19 05:00 Plt Count Comment Adequate (ADEQUATE) 09/01/19 05:00 MPV 8.8 fL (7.4-11.0) 09/01/19 05:00 Neut % (Auto) 90.3 % (42.0-75.0) H 09/01/19 05:00 Lymph % (Auto) 6.1 % (21.0-51.0) L 09/01/19 05:00 [place] % (Auto) 3.5 % (0.0-13.0) 09/01/19 05:00 Eos % (Auto) 0.0 % (0.9-2.9) L 09/01/19 05:00 Baso % (Auto) 0.1 % (0.2-1.0) L 09/01/19 05:00 Neut # (Auto) 5.5 x10^3/uL (2.2-4.8) H 09/01/19 05:00 Lymph # (Auto) 0.4 X10^3/uL (1.3-2.9) L 09/01/19 05:00 [place] # (Auto) 0.2 x10^3/uL (0.3-0.8) L 09/01/19 05:00 Eos # (Auto) 0.0 x10^3/uL (0.0-0.2) 09/01/19 05:00 Baso # (Auto) 0.0 X10^3/uL (0.0-0.1) 09/01/19 05:00 Absolute Nucleated RBC 0.0 /100WBC 09/01/19 05:00 Total Counted 100 09/01/19 05:00 Neutrophils % (Manual) 82 % (39-76) H 09/01/19 05:00 Band Neutrophils % 10 % (0-10) 09/01/19 05:00 Lymphocytes % (Manual) 6 % (13-43) L 09/01/19 05:00 Monocytes % (Manual) 2 % (4-9) L 09/01/19 05:00 Plt Morphology Comment Normal (NORMAL) 09/01/19 05:00 RBC Morphology Normal (NORMAL) 09/01/19 05:00 Sodium 138 mmol/L (136-145) 09/01/19 05:00 Corrected Sodium 140 mmol/L (136-145) 09/01/19 05:00 Potassium 3.8 mmol/L (3.5-5.1) 09/01/19 05:00 Chloride 103 mmol/L (98-107) 09/01/19 05:00 Carbon Dioxide 23.3 mmol/L (21-32) 09/01/19 05:00 BUN 11 mg/dL (7-18) 09/01/19 05:00 Creatinine 1.05 mg/dL (0.70-1.30) 09/01/19 05:00 Est GFR (MDRD) Af Amer > 60 (>60) 09/01/19 05:00 Est GFR (MDRD) Non-Af > 60 (>60) 09/01/19 05:00 Glucose 181 mg/dL (65-99) H 09/01/19 05:00 Calcium 8.3 mg/dL (8.5-10.1) L 09/01/19 05:00 Corrected Calcium 9.3 mg/dL (8.5-10.1) 09/01/19 05:00 Total Bilirubin 0.20 mg/dL (0.2-1.0) 09/01/19 05:00 AST 20 Units/L (15-37) 09/01/19 05:00 ALT 20 Units/L (12-78) 09/01/19 05:00 Alkaline Phosphatase 55 Units/L (46-116) 09/01/19 05:00 Total Protein 6.7 g/dL (6.4-8.2) 09/01/19 05:00 Albumin 2.8 g/dL (3.4-5.0) L 09/01/19 05:00 Globulin 3.9 g/dL (2.5-4.5) 09/01/19 05:00 Albumin/Globulin Ratio 0.7 Ratio (1.1-2.1) L 09/01/19 05:00 Specimen Type Clean catch urine 08/30/19 17:14 Urine Color Yellow (YELLOW) 08/30/19 17:14 Urine Appearance Hazy (CLEAR) 08/30/19 17:14 Urine pH 5.0 (5.0 - 8.0) 08/30/19 17:14 Ur Specific [place] 1.025 (1.000-1.030) 08/30/19 17:14 Urine Protein 2+ (NEGATIVE) 08/30/19 17:14 Urine Glucose (UA) Negative (NEGATIVE) 08/30/19 17:14 Urine Ketones 1+ (NEGATIVE) 08/30/19 17:14 Urine Occult Blood 3+ (NEGATIVE) 08/30/19 17:14 Urine Nitrite Negative (NEGATIVE) 08/30/19 17:14 Urine Bilirubin Negative (NEGATIVE) 08/30/19 17:14 Urine Urobilinogen Normal (NORMAL) 08/30/19 17:14 Ur Leukocyte Esterase Negative (NEGATIVE) 08/30/19 17:14 Urine RBC 0-2 /HPF (0-3) 08/30/19 17:14 Urine WBC 0-2 /HPF (0-5) 08/30/19 17:14 Ur Squamous Epith Cells Few /HPF (NEGATIVE) 08/30/19 17:14 Amorphous Sediment 2+ /HPF (NEGATIVE) 08/30/19 17:14 Urine Bacteria Trace /HPF (NEGATIVE) 08/30/19 17:14 Urine Mucus Few /HPF (NEGATIVE) 08/30/19 17:14 Ur Culture Indicated? No/not indicated 08/30/19 17:14 Plan (1) Bronchitis: Status: Acute Plan: IMPROVED, WILL CONTINUE TO MONITOR PNEUMONIA PROTOCOL,IV HYDRATION, IV ATBX THERAPY CXR IMPROVED FROM PRIOR, BLOOD AND SPUTUM CULTURE NGTD RESP THERAPY, PRN SUPPLEMENTAL O2 FEVER CONTROL (2) Dehydration: Status: Acute Plan: GENTLE IV HYDRATION. CR:1.49>1.19>1.05 (3) Bronchopneumonia: Status: Acute (4) Fever: Status: Acute (5) Weakness: Status: Acute (6) Hypothyroidism: Status: Chronic
[2019-09-01] MEDS: NS 1/2 1000 ML IV 1,000 ML IV ONE ×2 (19:24→19:25)
[2019-09-01] MEDS ORDERED: NS 1/2 1000 ML IV 1,000 ML IV ONE (20:04)
[2019-09-02 04:58] LABS: BASOPHILS % (AUTO) 0 % (0.2-1.0); EOSINOPHILS % (AUTO) 0.1 % (0.9-2.9); HEMATOCRIT 34.8 % (42.0-54.0); HEMOGLOBIN 11.8 g/dL (13.5-18.0); LYMPHOCYTES # (AUTO) 0.8 X10^3/uL (1.3-2.9); LYMPHOCYTES % (AUTO) 8.8 % (21.0-51.0); MEAN CORPUSCULAR HEMOGLOBIN 30.4 pg (27.0-34.0); MEAN CORPUSCULAR HGB CONC 33.9 g/dL (33.0-35.0); MEAN CORPUSCULAR VOLUME 89.6 fL (80.0-100.0); MEAN PLATELET VOLUME 8.2 fL (7.4-11.0); MONOCYTES # (AUTO) 0.7 x10^3/uL (0.3-0.8); MONOCYTES % (AUTO) 7.9 % (0.0-13.0); NEUTROPHILS # (AUTO) 7.8 x10^3/uL (2.2-4.8); NEUTROPHILS % (AUTO) 83.2 % (42.0-75.0); PLATELET COUNT 186 X10^3/uL (150.0-450.0); RED BLOOD COUNT 3.88 X10^6/uL (4.7-6.0); RED CELL DISTRIBUTION WIDTH 13.7 % (11.6-16.5); WHITE BLOOD COUNT 9.4 X10^3/uL (3.6-10.0)
[2019-09-02 05:06] LABS: BLOOD UREA NITROGEN 11 mg/dL (7-18); CALCIUM 8.1 mg/dL (8.5-10.1); CARBON DIOXIDE 25.6 mmol/L (21-32); CHLORIDE 105 mmol/L (98-107); COR NA(FOR HYPERGLY) 141 mmol/L (136-145); CREATININE 1.17 mg/dL (0.70-1.30); SODIUM 141 mmol/L (136-145); eGFR NON BLACK RACES > 60 (>60)
[2019-09-02] MEDS: ZOSYN VIAL 4.5 GRAMS 4.5 G in NS 100 ML IV + SPIKE MINIBAG* 100 ML IV SCH (05:50)
[2019-09-02] MEDS ORDERED: K-RIDER 10 MEQ/NS 100 ML 10 MEQ/100 ML BAG IV PRN (05:55)
[2019-09-02] MEDS ORDERED: POTASSIUM CHLORIDE LIQ 20 MEQ UDC PO PRN (05:55)
[2019-09-02] MEDS ORDERED: KLOR-CON PO PRN (05:55)
[2019-09-02] MEDS ORDERED: POTASSIUM CHL 40 MEQ/NS 0.45% 500 ML IV PRN (05:55)
[2019-09-02] MEDS ORDERED: MICRO K EXTEN CAP 10 MEQ PO PRN (05:55)
[2019-09-02] MEDS ORDERED: K-DUR TAB 20 MEQ PO PRN (05:55)
[2019-09-02] MEDS ORDERED: POTASSIUM CHL 60 MEQ/NS 0.45% 500 ML IV PRN (05:55)
[2019-09-02] MEDS: ROBITUSSIN DM PO SCH ×2 (08:28→13:25)
[2019-09-02] MEDS: PROTONIX INJ 40 MG VIAL IVP SCH (08:29)
[2019-09-02] MEDS: LEVAQUIN PREMIX IV 500 MG 500 MG/100 ML BAG IV SCH (08:29)
[2019-09-02] MEDS: DUONEB 0.5 MG/3 MG NEB SCH (08:44)
[2019-09-02] MEDS: PULMICORT NEB TX 0.5 MG NEB SCH (08:44)
[2019-09-02] MEDS ORDERED: NS 1/2 1000 ML IV 1,000 ML IV ONE (10:27)
[2019-09-02] MEDS: NS 1/2 1000 ML IV 1,000 ML IV SCH (10:35)
--- NOTE | 2019-09-02 11:13 | W.DIS.FURT ---
Summary of Discharge Discharge Summary of Date Date of Exam: 09/02/19 Admission Date Date of Admission: 08/30/19 Admission Diagnosis Patient Problems (Updated 09/02/19 @ 11:11 by Inocencio Sams) Bronchopneumonia (Acute) J18.0 Dehydration (Acute) E86.0 Hospital Course: Pt is a 59 yo m admitted for bronchopneumonia and dehydration. He was placed on pneumonia protocol, Duo-nebs, IV Levaquin+IV Zosyn. Serial CXR showed improvement and resolution of pneumonia. Sputum and blood cx NGTD. He received IVF w/ renal function returning to normal range. On day of discharge pt was ambulating without difficulty, vitals wnl, did not require supplemental O2, Pulmonary exam CTAB. He was discharged w/ PO Levaquin and instructed to complete antibiotics course. He will need to follow up with pcp within 1 week. Vital Signs: Vital Signs (72 hours) 08/30/19 12:10 08/30/19 12:25 08/30/19 14:15 Temperature 98.4 F Pulse Rate 74 80 Pulse Rate [Right Brachial] 72 Respiratory Rate 18 18 Blood Pressure 143/77 Blood Pressure [Right Arm] 133/74 O2 Sat by Pulse Oximetry 94 L 95 96 08/30/19 16:00 08/30/19 16:37 08/30/19 20:00 Temperature 98.7 F 98.1 F Pulse Rate 80 Pulse Rate [Right Brachial] 89 77 Respiratory Rate 20 28 H Blood Pressure Blood Pressure [Right Arm] 142/77 131/68 O2 Sat by Pulse Oximetry 98 96 97 08/30/19 20:40 08/31/19 00:00 08/31/19 04:00 Temperature 98.3 F 98.5 F Pulse Rate 77 Pulse Rate [Right Brachial] 78 62 Respiratory Rate 16 18 Blood Pressure Blood Pressure [Right Arm] 113/69 134/81 O2 Sat by Pulse Oximetry 97 95 98 08/31/19 07:50 08/31/19 08:37 08/31/19 12:00 Temperature 99.1 F 98.0 F Pulse Rate 66 Pulse Rate [Right Brachial] 72 75 Respiratory Rate 20 18 Blood Pressure Blood Pressure [Right Arm] 121/79 121/69 O2 Sat by Pulse Oximetry 98 99 98 08/31/19 12:04 08/31/19 15:34 08/31/19 16:59 Temperature Pulse Rate 80 75 Pulse Rate [Right Brachial] 74 Respiratory Rate 17 Blood Pressure Blood Pressure [Right Arm] 116/64 O2 Sat by Pulse Oximetry 96 96 97 08/31/19 20:00 08/31/19 20:50 09/01/19 00:00 Temperature 97.9 F 97.7 F Pulse Rate 79 Pulse Rate [Right Brachial] 71 84 Respiratory Rate 21 22 Blood Pressure Blood Pressure [Right Arm] 139/71 137/74 O2 Sat by Pulse Oximetry 97 98 97 09/01/19 04:00 09/01/19 08:00 09/01/19 08:30 Temperature 98.1 F 98.0 F Pulse Rate 69 Pulse Rate [Right Brachial] 64 60 Respiratory Rate 24 18 Blood Pressure Blood Pressure [Right Arm] 150/71 158/79 O2 Sat by Pulse Oximetry 95 98 95 09/01/19 11:51 09/01/19 12:00 09/01/19 16:00 Temperature 98 F 97.7 F Pulse Rate 79 Pulse Rate [Right Brachial] 60 66 Respiratory Rate 18 18 Blood Pressure Blood Pressure [Right Arm] 158/79 139/69 O2 Sat by Pulse Oximetry 96 98 95 09/01/19 20:00 09/01/19 21:15 09/02/19 00:00 Temperature 97.6 F 97.7 F Pulse Rate 75 Pulse Rate [Right Brachial] 72 83 Respiratory Rate 24 20 Blood Pressure Blood Pressure [Right Arm] 131/61 124/62 O2 Sat by Pulse Oximetry 98 97 97 09/02/19 04:00 09/02/19 07:33 09/02/19 08:44 Temperature 98.1 F 97.6 F Pulse Rate 75 Pulse Rate [Right Brachial] 61 66 Respiratory Rate 18 18 Blood Pressure Blood Pressure [Right Arm] 121/65 136/77 O2 Sat by Pulse Oximetry 97 97 96 Labs: Laboratory Last Values WBC 9.4 X10^3/uL (3.6-10.0) 09/02/19 04:30 RBC 3.88 X10^6/uL (4.7-6.0) L 09/02/19 04:30 Hgb 11.8 g/dL (13.5-18.0) L 09/02/19 04:30 Hct 34.8 % (42.0-54.0) L 09/02/19 04:30 MCV 89.6 fL (80.0-100.0) 09/02/19 04:30 MCH 30.4 pg (27.0-34.0) 09/02/19 04:30 MCHC 33.9 g/dL (33.0-35.0) 09/02/19 04:30 RDW 13.7 % (11.6-16.5) 09/02/19 04:30 Plt Count 186 X10^3/uL (150.0-450.0) 09/02/19 04:30 Plt Count Comment Adequate (ADEQUATE) 09/01/19 05:00 MPV 8.2 fL (7.4-11.0) 09/02/19 04:30 Neut % (Auto) 83.2 % (42.0-75.0) H 09/02/19 04:30 Lymph % (Auto) 8.8 % (21.0-51.0) L 09/02/19 04:30 [place] % (Auto) 7.9 % (0.0-13.0) 09/02/19 04:30 Eos % (Auto) 0.1 % (0.9-2.9) L 09/02/19 04:30 Baso % (Auto) 0 % (0.2-1.0) L 09/02/19 04:30 Neut # (Auto) 7.8 x10^3/uL (2.2-4.8) H 09/02/19 04:30 Lymph # (Auto) 0.8 X10^3/uL (1.3-2.9) L 09/02/19 04:30 [place] # (Auto) 0.7 x10^3/uL (0.3-0.8) 09/02/19 04:30 Eos # (Auto) 0.0 x10^3/uL (0.0-0.2) 09/02/19 04:30 Baso # (Auto) 0.0 X10^3/uL (0.0-0.1) 09/02/19 04:30 Absolute Nucleated RBC 0.0 /100WBC 09/02/19 04:30 Total Counted 100 09/01/19 05:00 Neutrophils % (Manual) 82 % (39-76) H 09/01/19 05:00 Band Neutrophils % 10 % (0-10) 09/01/19 05:00 Lymphocytes % (Manual) 6 % (13-43) L 09/01/19 05:00 Monocytes % (Manual) 2 % (4-9) L 09/01/19 05:00 Plt Morphology Comment Normal (NORMAL) 09/01/19 05:00 RBC Morphology Normal (NORMAL) 09/01/19 05:00 Sodium 141 mmol/L (136-145) 09/02/19 04:30 Corrected Sodium 141 mmol/L (136-145) 09/02/19 04:30 Potassium 3.5 mmol/L (3.5-5.1) 09/02/19 04:30 Chloride 105 mmol/L (98-107) 09/02/19 04:30 Carbon Dioxide 25.6 mmol/L (21-32) 09/02/19 04:30 BUN 11 mg/dL (7-18) 09/02/19 04:30 Creatinine 1.17 mg/dL (0.70-1.30) 09/02/19 04:30 Est GFR (MDRD) Af Amer > 60 (>60) 09/02/19 04:30 Est GFR (MDRD) Non-Af > 60 (>60) 09/02/19 04:30 Glucose 113 mg/dL (65-99) H 09/02/19 04:30 Calcium 8.1 mg/dL (8.5-10.1) L 09/02/19 04:30 Corrected Calcium 9.3 mg/dL (8.5-10.1) 09/01/19 05:00 Total Bilirubin 0.20 mg/dL (0.2-1.0) 09/01/19 05:00 AST 20 Units/L (15-37) 09/01/19 05:00 ALT 20 Units/L (12-78) 09/01/19 05:00 Alkaline Phosphatase 55 Units/L (46-116) 09/01/19 05:00 Total Protein 6.7 g/dL (6.4-8.2) 09/01/19 05:00 Albumin 2.8 g/dL (3.4-5.0) L 09/01/19 05:00 Globulin 3.9 g/dL (2.5-4.5) 09/01/19 05:00 Albumin/Globulin Ratio 0.7 Ratio (1.1-2.1) L 09/01/19 05:00 Specimen Type Clean catch urine 08/30/19 17:14 Urine Color Yellow (YELLOW) 08/30/19 17:14 Urine Appearance Hazy (CLEAR) 08/30/19 17:14 Urine pH 5.0 (5.0 - 8.0) 08/30/19 17:14 Ur Specific [place] 1.025 (1.000-1.030) 08/30/19 17:14 Urine Protein 2+ (NEGATIVE) 08/30/19 17:14 Urine Glucose (UA) Negative (NEGATIVE) 08/30/19 17:14 Urine Ketones 1+ (NEGATIVE) 08/30/19 17:14 Urine Occult Blood 3+ (NEGATIVE) 08/30/19 17:14 Urine Nitrite Negative (NEGATIVE) 08/30/19 17:14 Urine Bilirubin Negative (NEGATIVE) 08/30/19 17:14 Urine Urobilinogen Normal (NORMAL) 08/30/19 17:14 Ur Leukocyte Esterase Negative (NEGATIVE) 08/30/19 17:14 Urine RBC 0-2 /HPF (0-3) 08/30/19 17:14 Urine WBC 0-2 /HPF (0-5) 08/30/19 17:14 Ur Squamous Epith Cells Few /HPF (NEGATIVE) 08/30/19 17:14 Amorphous Sediment 2+ /HPF (NEGATIVE) 08/30/19 17:14 Urine Bacteria Trace /HPF (NEGATIVE) 08/30/19 17:14 Urine Mucus Few /HPF (NEGATIVE) 08/30/19 17:14 Ur Culture Indicated? No/not indicated 08/30/19 17:14 Reason For Visit: BRONCHITIS Discharge Date Discharge Date: 09/02/19 Discharge Diagnosis All Active Problems (Updated 09/02/19 @ 11:11 by Inocencio Sams) Perforated stomach (Chronic) S/P exploratory laparotomy (Chronic) Abdominal pain (Chronic) S/p small bowel obstruction (Chronic) Abdominal pain in male (Chronic) Cerumen impaction (Chronic) Left ureteral stone (Chronic) Dizzy (Chronic) Weakness (Chronic) Bronchopneumonia (Acute) Dizziness (Acute) Generalized weakness (Acute) Bronchitis (Acute) Sinusitis (Acute) Dehydration (Acute) Gastritis (Acute) Perforated bowel (Chronic) Hypothyroidism (Chronic) Essential hypertension (Chronic) Arthritis (Chronic) History of asthma (Chronic) Back pain (Chronic) Muscle weakness (Chronic) Gastrointestinal ulcer (Chronic) HTN (hypertension) (Chronic) Plan of Treatment: Continue with present treatment and follow up plan. Pt is to keep follow up appointment as instructed and take medications as ordered. Discharge Medications Discharge Medications: No Known Drug Allergies Allergy (Verified 01/24/19 13:29) New Prescriptions levofloxacin [Levaquin] 750 mg PO Q24H #4 tab 09/02/19 [Rx] Follow up and Referral Follow Up: 1 Week Discharge Disposition Discharge Disposition: Home
[2019-09-02 12:58] VITALS: BP 131/76
== END 2019-09-02 13:25 | disposition home or self-care (01) | DRG 195 ==
LOC: MED/SURG 11:50
PROVIDERS: ADMIT Internal Medicine; ATTEND Internal Medicine
DX: R53.1 Weakness; R50.9 Fever, unspecified; J44.9 Chronic obstructive pulmonary disease, unspecified; J18.0 Bronchopneumonia, unspecified organism; E86.0 Dehydration; E03.8 Other specified hypothyroidism; K21.9 Gastro-esophageal reflux disease without esophagitis; J20.8 Acute bronchitis due to other specified organisms
CPT/HCPCS: 36415; 71020; 71046; 80048; 80053; 81001; 85025; 87040; 87070; 87205; 94640; 94669; 94760; A4222; C9113; J1956; J2543; J2930; J7050; J7620; J7626

== ENCOUNTER 2022-11-09 11:19 | Observation (INO) ==
[2022-11-09] MEDS: PROTONIX INJ 40 MG VIAL IVP SCH (13:00)
--- NOTE | 2022-11-09 13:10 | EKG ---
Test Reason : CHEST PAIN Blood Pressure : */* mmHG Vent. Rate : 69 BPM Atrial Rate : 69 BPM P-R Int : 144 ms QRS Dur : 92 ms QT Int : 386 ms P-R-T Axes : 78 0 59 degrees QTc Int : 413 ms Normal sinus rhythm with sinus arrhythmia Septal infarct , age undetermined Abnormal ECG When compared with ECG of 06-NOV-2022 01:04, Septal infarct is now present Confirmed by Antolin Edouard ([id number]) on 11/10/2022 12:33:33 PM Referred By: Confirmed By: Antolin Edouard
[2022-11-09 13:16] LABS: ABG BASE EXCESS 5.4 mmol/L (-2.0-2.0)
[2022-11-09 13:17] LABS: ABG HCO3 31.1 mmol/L (22-26)
[2022-11-09 13:18] LABS: ABG ALLEN TEST POS
[2022-11-09] MEDS: NS 1,000 ML IV 1,000 ML IV SCH (13:30)
[2022-11-09 14:04] VITALS: BMI 19.1
[2022-11-09 14:12] LABS: BASOPHILS % (AUTO) 0.5 % (0.2-1.0); EOSINOPHILS # (AUTO) 0.1 x10^3/uL (0.0-0.2); EOSINOPHILS % (AUTO) 1.8 % (0.9-2.9); HEMATOCRIT 39.2 % (42.0-54.0); LYMPHOCYTES # (AUTO) 0.9 X10^3/uL (1.3-2.9); LYMPHOCYTES % (AUTO) 15.5 % (21.0-51.0); MEAN CORPUSCULAR HEMOGLOBIN 30.3 pg (27.0-34.0); MEAN CORPUSCULAR HGB CONC 33.2 g/dL (33.0-35.0); MEAN CORPUSCULAR VOLUME 91.3 fL (80.0-100.0); MEAN PLATELET VOLUME 8.3 fL (7.4-11.0); MONOCYTES # (AUTO) 0.5 x10^3/uL (0.3-0.8); MONOCYTES % (AUTO) 7.9 % (0.0-13.0); NEUTROPHILS # (AUTO) 4.4 x10^3/uL (2.2-4.8); NEUTROPHILS % (AUTO) 74.3 % (42.0-75.0); WHITE BLOOD COUNT 5.9 X10^3/uL (3.6-10.0)
[2022-11-09 14:30] LABS: ALANINE AMINOTRANSFERASE 16 Units/L (12-78); ALBUMIN 3.9 g/dL (3.4-5.0); ALKALINE PHOSPHATASE 82 Units/L (46-116); ASPARTATE AMINO TRANSFERASE 16 Units/L (15-37); BLOOD UREA NITROGEN 13 mg/dL (7-18); CALCIUM 8.3 mg/dL (8.5-10.1); CARBON DIOXIDE 31.1 mmol/L (21-32); CHLORIDE 103 mmol/L (98-107); CREATININE 1.21 mg/dL (0.70-1.30); SODIUM 140 mmol/L (136-145); TOTAL PROTEIN 7.5 g/dL (6.4-8.2); eGFR NON BLACK RACES > 60 (>60)
[2022-11-09 15:10] LABS: IRON 84 ug/dL (50-175)
--- NOTE | 2022-11-09 17:23 | EKG ---
Test Reason : CHEST PAIN Blood Pressure : */* mmHG Vent. Rate : 63 BPM Atrial Rate : 63 BPM P-R Int : 150 ms QRS Dur : 86 ms QT Int : 388 ms P-R-T Axes : 76 4 64 degrees QTc Int : 397 ms Sinus rhythm with premature supraventricular complexes Otherwise normal ECG When compared with ECG of 09-NOV-2022 13:05, (Unconfirmed) premature supraventricular complexes are now present Criteria for Septal infarct are no longer present Confirmed by Antolin Edouard ([id number]) on 11/10/2022 12:33:06 PM Referred By: Confirmed By: Antolin Edouard
--- NOTE | 2022-11-09 18:39 | DR.H&P ---
H&P - History & Physical for Day of: H&P Date: 11/09/22 - Chief Complaint Chief Complaint: CHEST PAIN, SOB - History of Present Illness History of Present Illness: PT IS 62WM, DIRECT ADMIT FROM DR BALLESTEROS OFFICE WITH CO CHEST PAIN. PT REPORTS HE HAS HAD INTERMITTENT CHEST PAIN FOR THE PAST 3 WEEKS. PT WAS SEEN IN THE ER 2X WITH REPORTS OF INCREASED SOB. PT HAS PMH OF HYPOTHYROIDISM. PT DENIES ANY FEVER OR FLU LIKE SYMPTOMS. PT ADMITTED FOR TREATMENT AND EVALUATION OF ACUTE ILLNESS. - Past Medical History Past Medical History: Anemia, Arthritis, GERD, Hypothyroidism Additional Medical History: Hx GI Ulcer - Past Surgical History Surgical History: Abdominal Surgery, Lithotripsy, Other, Tonsillectomy - Family History Family Medical History: Diabetes Mellitus, Hypertension - Social History Does patient currently use any type of tobacco product: No Have you used tobacco products in the last 12 months: No Type of Tobacco Use: None Does any household member use tobacco: No Alcohol Use: None Drug Use: None - Medications Home Medications: No Known Drug Allergies Allergy (Verified 01/24/19 13:29) CONTINUE taking the following medications dorzolamide 22.3 mg-timolol 6.8 mg/mL eye drops 1 drp ophthalmic (eye) BID 11/09/22 [History] latanoprost 0.005 % eye drops 1 drp ophthalmic (eye) HS 11/09/22 [History] levothyroxine 50 mcg tablet 50 mcg PO DAILY 11/09/22 [History] - Review of Systems Constitutional: Weakness Eyes: No Symptoms Reported Respiratory: Shortness of Breath Cardiovascular: Chest Pain, Palpitations Gastrointestinal: No Symptoms Reported Genitourinary: No Symptoms Reported Musculoskeletal: No Symptoms Reported Skin: No Symptoms Reported Neurological: No Symptoms Reported - Physical Exam Vital Signs: Temperature 98.1 F Pulse Rate [Left Brachial] 62 Pulse Rate [Bilateral Radial] 66 Respiratory Rate 20 Blood Pressure [Right Arm] 136/74 Blood Pressure [Left Arm] 161/77 Blood Pressure [Right Arm] 119/74 Blood Pressure 136/74 O2 Sat by Pulse Oximetry 100 Oriented: Normal Eyes: Normal Ear: Normal Nose: Normal Throat: Normal Respiratory: RLL Diminished, LLL Diminished Cardiovascular: Normal, Murmur : Normal Auscultation: Bowel Sounds: Normal Palpation: Normal Tenderness: Epigastric, Mild Skin: Decreased Turgur Musculoskeletal: Normal Psychiatric: Anxiety Affect: Anxious Speech Pattern: Clear, Appropriate - Assessment/Plan (1) Chest pain Status: Acute Plan: ADMIT, SERIAL CE AND EKG. CXR ON ADMISSION, ABG. VERIFY HOME MEDICATION, GENTLE IV HYDRATION. PPI THERAPY, BP MONITORING. AM FLP (2) Dyspepsia Status: Acute (3) SOB (shortness of breath) Status: Acute (4) Hypothyroidism Status: Acute (5) HTN (hypertension) Status: Chronic - Allergies Allergies/Adverse Reactions: Allergies Allergy/AdvReac Type Severity Reaction Status Date / Time No Known Drug Allergies Allergy Verified 01/24/19 13:29
[2022-11-09] MEDS: ZESTRIL TAB 5 MG PO SCH (20:25)
--- NOTE | 2022-11-10 | RAD ---
HISTORYCHEST PAIN, SOB Relevant Clinical InformationSTUDYCHEST, FRANCIS/LAT [id number] trachea is midline. The cardiac silhouette is unremarkable. The lungs are clear without focal infiltrate or effusion. The bony thorax is unremarkable.IMPRESSIONNo acute cardiopulmonary findings .Electronically signed by: Ed Espinosa (Nov 09, 2022 23:58:45)
--- NOTE | 2022-11-10 01:54 | EKG ---
Test Reason : CHEST PAIN Blood Pressure : */* mmHG Vent. Rate : 53 BPM Atrial Rate : 53 BPM P-R Int : 154 ms QRS Dur : 94 ms QT Int : 422 ms P-R-T Axes : 81 5 55 degrees QTc Int : 395 ms Sinus bradycardia Otherwise normal ECG Confirmed by Antolin Edouard ([id number]) on 11/10/2022 12:32:42 PM Referred By: Confirmed By: Antolin Edouard
[2022-11-10] MEDS: NS 1,000 ML IV 1,000 ML IV SCH (03:57)
[2022-11-10 06:33] LABS: BASOPHILS % (AUTO) 0.7 % (0.2-1.0); EOSINOPHILS # (AUTO) 0.2 x10^3/uL (0.0-0.2); EOSINOPHILS % (AUTO) 3.5 % (0.9-2.9); HEMATOCRIT 38.7 % (42.0-54.0); HEMOGLOBIN 13.1 g/dL (13.5-18.0); LYMPHOCYTES # (AUTO) 1.3 X10^3/uL (1.3-2.9); LYMPHOCYTES % (AUTO) 18.9 % (21.0-51.0); MEAN CORPUSCULAR HEMOGLOBIN 30.6 pg (27.0-34.0); MEAN CORPUSCULAR HGB CONC 33.7 g/dL (33.0-35.0); MEAN CORPUSCULAR VOLUME 90.7 fL (80.0-100.0); MEAN PLATELET VOLUME 8.8 fL (7.4-11.0); MONOCYTES # (AUTO) 0.5 x10^3/uL (0.3-0.8); NEUTROPHILS # (AUTO) 4.7 x10^3/uL (2.2-4.8); NEUTROPHILS % (AUTO) 68.9 % (42.0-75.0); RED BLOOD COUNT 4.26 X10^6/uL (4.7-6.0); WHITE BLOOD COUNT 6.8 X10^3/uL (3.6-10.0)
[2022-11-10 06:45] LABS: ALANINE AMINOTRANSFERASE 11 Units/L (12-78); ALBUMIN 3.4 g/dL (3.4-5.0); ALKALINE PHOSPHATASE 73 Units/L (46-116); ASPARTATE AMINO TRANSFERASE 15 Units/L (15-37); BLOOD UREA NITROGEN 11 mg/dL (7-18); CALCIUM 8.2 mg/dL (8.5-10.1); CARBON DIOXIDE 27.8 mmol/L (21-32); CHLORIDE 105 mmol/L (98-107); CHOL/HDL RATIO 2.6 (0.0-5.0); CHOLESTEROL 118 mg/dL (0-200); CREATININE 1.03 mg/dL (0.70-1.30); HDL CHOLESTEROL 45 mg/dL (40-60); SODIUM 139 mmol/L (136-145); TOTAL PROTEIN 6.8 g/dL (6.4-8.2); TRIGLYCERIDES 94 mg/dL (0-150); eGFR NON BLACK RACES > 60 (>60)
[2022-11-10] MEDS: ZESTRIL TAB 5 MG PO SCH (08:48)
[2022-11-10] MEDS: PROTONIX INJ 40 MG VIAL IVP SCH (08:48)
[2022-11-11] MEDS: NS 1,000 ML IV 1,000 ML IV SCH ×2 (06:15→06:16)
[2022-11-11 06:16] LABS: BASOPHILS % (AUTO) 0.7 % (0.2-1.0); EOSINOPHILS # (AUTO) 0.2 x10^3/uL (0.0-0.2); EOSINOPHILS % (AUTO) 3.4 % (0.9-2.9); HEMATOCRIT 39.9 % (42.0-54.0); HEMOGLOBIN 13.4 g/dL (13.5-18.0); LYMPHOCYTES # (AUTO) 1.2 X10^3/uL (1.3-2.9); LYMPHOCYTES % (AUTO) 18.5 % (21.0-51.0); MEAN CORPUSCULAR HEMOGLOBIN 30.5 pg (27.0-34.0); MEAN CORPUSCULAR HGB CONC 33.5 g/dL (33.0-35.0); MEAN CORPUSCULAR VOLUME 90.8 fL (80.0-100.0); MEAN PLATELET VOLUME 8.8 fL (7.4-11.0); MONOCYTES # (AUTO) 0.5 x10^3/uL (0.3-0.8); MONOCYTES % (AUTO) 8.3 % (0.0-13.0); NEUTROPHILS # (AUTO) 4.5 x10^3/uL (2.2-4.8); NEUTROPHILS % (AUTO) 69.1 % (42.0-75.0); RED BLOOD COUNT 4.39 X10^6/uL (4.7-6.0); RED CELL DISTRIBUTION WIDTH 13.8 % (11.6-16.5); WHITE BLOOD COUNT 6.5 X10^3/uL (3.6-10.0)
[2022-11-11 06:19] LABS: ALANINE AMINOTRANSFERASE 11 Units/L (12-78); ALBUMIN 3.4 g/dL (3.4-5.0); ALKALINE PHOSPHATASE 83 Units/L (46-116); ASPARTATE AMINO TRANSFERASE 14 Units/L (15-37); BLOOD UREA NITROGEN 16 mg/dL (7-18); CALCIUM 8.1 mg/dL (8.5-10.1); CARBON DIOXIDE 26.8 mmol/L (21-32); CHLORIDE 104 mmol/L (98-107); CREATININE 1.13 mg/dL (0.70-1.30); SODIUM 137 mmol/L (136-145); TOTAL PROTEIN 6.9 g/dL (6.4-8.2); eGFR NON BLACK RACES > 60 (>60)
[2022-11-11] MEDS: PROTONIX INJ 40 MG VIAL IVP SCH (08:55)
[2022-11-11] MEDS: ZESTRIL TAB 5 MG PO SCH (08:55)
[2022-11-11 10:59] VITALS: BP 136/68
== END 2022-11-11 14:15 | disposition home or self-care (01) ==
LOC: MED/SURG
PROVIDERS: ADMIT Internal Medicine; ATTEND Internal Medicine
DX: R06.02 Shortness of breath; R10.13 Epigastric pain; I10 Essential (primary) hypertension; R07.89 Other chest pain; Z87.11 Personal history of peptic ulcer disease; E03.8 Other specified hypothyroidism; R00.1 Bradycardia, unspecified; K21.9 Gastro-esophageal reflux disease without esophagitis